=== PATIENT | male | born 1990 | race Caucasian/White ===

== ENCOUNTER 2017-06-03 11:51 | Emergency (ER) | payer OTHER ==
[~2017-06-03] VITALS: Ht 180.3 cm; Wt 83.9 kg
[~2017-06-03 11:51] MED LIST: ALBU90OI INH; CEPH500; CEPH500 PO; CLIN300 PO; CYCL10 PO; HYDACE5; HYDACE5 PO; IBUP400 PO; IBUP600 PO; IBUP800; IBUP800 PO; Monodox100 MG PO; NAPR375 PO; NAPR500 PO; OXYACE5T PO; PENVK500 PO; PRED10 PO; PROCODE120 PO; PROM25 PO; SPACE CHAMBER1 EACH MC
== END 2017-06-03 12:44 | disposition home or self-care (01) ==
LOC: ER 11:51
DX: J02.9 Acute pharyngitis, unspecified (principal)
CPT/HCPCS: 87081; 87430; 99283; J1100